=== PATIENT | male | born 1995 | race Caucasian/White ===

== ENCOUNTER 2024-03-05 10:40 | Outpatient (CLI) | payer BC | END 2024-03-05 10:41 | disposition home or self-care (01) | LOC: CSHRAD 10:40 | PROVIDERS: ATTEND Otolaryngology Plastic Surgery within the Head & Neck | DX: R13.10 Dysphagia, unspecified (principal); K22.2 Esophageal obstruction; K22.9 Disease of esophagus, unspecified | CPT/HCPCS: 74220 ==